=== PATIENT | female | born 1995 | race African-American/Black ===

== ENCOUNTER 2023-12-27 19:30 | Inpatient (IN) | payer BC ==
[2023-12-27 20:48] VITALS: BMI 29.4
[2023-12-27 21:27] LABS: BASO % 0.9 % (0-2.0); EOS % 0.7 % (0-4.5); HEMATOCRIT 27.5 % (32.4-45.2); HEMOGLOBIN 9.2 GM/dL (10.7-15.3); LYMPH % 23.9 % (8-40); MCH 26.3 pg (25.7-33.7); MCHC 33.7 g/dl (32.0-36.0); NEUT % 62.5 % (42.8-82.8); RBC 3.52 M/mm3 (3.60-5.2); RDW 15.1 % (11.6-15.6); WHITE BLOOD COUNT 9.2 K/mm3 (4.0-10.0)
[2023-12-27 21:43] LABS: INR 0.99 (0.83-1.09); PROTHROMBIN TIME (PATIENT) 11.5 SEC (9.7-13.0)
[2023-12-27 21:45] LABS: ACTIVATED PTT 25.5 SECONDS (25.2-36.5)
[2023-12-27 21:47] LABS: POTASSIUM 3.3 mmol/L (3.5-5.1)
[2023-12-27 21:53] LABS: ALBUMIN 2.2 g/dl (3.4-5.0); BLOOD UREA NITROGEN 10.9 mg/dL (7-18); CALCIUM 8.3 mg/dL (8.5-10.1)
[2023-12-27 21:56] LABS: BILIRUBIN,TOTAL 0.3 mg/dL (0.2-1); CREATININE 0.7 mg/dL (0.55-1.3)
[2023-12-27 22:05] LABS: MEAN PLT VOLUME 10.9 fl (7.5-11.1); PLATELET COUNT 177 10^3/uL (134-434)
[2023-12-27] MEDS: MISOPROSTOL 100 MCG TABLET PV SCH (22:15)
[2023-12-27] MEDS: DEXTROSE 5%-LACTATED RINGERS 1,000 ML IV SCH (22:30)
[2023-12-28] MEDS: IRON SUCROSE INJECTION 300 MG in SODIUM CHLORIDE 235 ML IVPB ONE (00:45)
[2023-12-28] MEDS ORDERED: morphine SULFATE 4 MG/ML VIAL ONE (05:10)
[2023-12-28] MEDS: morphine CARPU-JECT 8 MG/1 ML DISP.SYRIN IVPB ONE (05:15)
[2023-12-28] MEDS: SODIUM CHLORIDE 500 ML IV STA ×2 (10:00)
[2023-12-28] MEDS ORDERED: OXYTOCIN 30 UNITS in 0.9% NS 30 UNIT/500 ML INFUS.BAG IVPB ONE (10:08)
[2023-12-28] MEDS: OXYTOCIN 30 UNITS in 0.9% NS 30 UNIT/500 ML INFUS.BAG IVPB SCH (10:20)
[2023-12-28] MEDS: morphine SULFATE 4 MG/ML VIAL IVPB PRN (11:30)
[2023-12-28] MEDS ORDERED: OXYTOCIN 20 UNITS in 0.9% NS 20 UNIT/1,000 ML INFUS.BAG IV ONE (14:36)
[2023-12-28] MEDS: OXYTOCIN 20 UNITS in 0.9% NS 20 UNIT/1,000 ML INFUS.BAG IV SCH (15:35)
[2023-12-28] MEDS ORDERED: BENZOCAINE 28 GM HEMORRHOIDAL OINTMENT TP PRN (16:03)
[2023-12-28] MEDS ORDERED: ACETAMINOPHEN 325 MG TABLET (FP) PO PRN (16:03)
[2023-12-28 16:32] LABS: CORD BASE EXCESS -8.4 mmol/L (0-2); CORD HCO3 21.7 mmHg (20-29); CORD PCO2 64.4 mmHg (30-78); CORD pH 7.145 (7.14-7.44)
[2023-12-28 16:33] LABS: CORD BASE EXCESS -3.9 mmol/L (0-2); CORD PCO2 48.8 mmHg (30-78); CORD pH 7.292 (7.14-7.44)
[2023-12-28] MEDS: FERROUS SO4 325 MG TABLET (FP) PO SCH (18:59)
[2023-12-28] MEDS: IBUPROFEN 600 MG TABLET (FP) PO PRN (20:17)
[2023-12-28] MEDS: WITCH HAZEL 50% (TUCKS) 40 PAD/JAR PAD TP PRN (21:07)
[2023-12-28] MEDS: DOCUSATE SODIUM 100 MG CAPSULE (FP) PO SCH (21:07)
[2023-12-28 23:29] VITALS: RESP 18
[2023-12-29 08:38] LABS: BASO % 0.2 % (0-2.0); HEMATOCRIT 25.4 % (32.4-45.2); HEMOGLOBIN 8.4 GM/dL (10.7-15.3); LYMPH % 16.1 % (8-40); MCH 25.9 pg (25.7-33.7); MEAN CELL VOLUME 78.5 fl (80-96); MEAN PLT VOLUME 10.8 fl (7.5-11.1); MONO % 9.8 % (3.8-10.2); NEUT % 72.9 % (42.8-82.8); PLATELET COUNT 149 10^3/uL (134-434); RBC 3.23 M/mm3 (3.60-5.2); WHITE BLOOD COUNT 13.9 K/mm3 (4.0-10.0)
[2023-12-30 10:55] VITALS: BP 125/86; PULSE 87; TEMP 98.6
== END 2023-12-30 13:40 | disposition home or self-care (01) | DRG 806 ==
LOC: JLDR 19:30 → J3W 12-28 18:30
PROVIDERS: ADMIT Obstetrics & Gynecology Maternal & Fetal Medicine; ATTEND Obstetrics & Gynecology Maternal & Fetal Medicine
PROC: 10E0XZZ Delivery of Products of Conception, External Approach (ICD-10-PCS; principal; 2023-12-28)
PROC: 0HQ9XZZ Repair Perineum Skin, External Approach (ICD-10-PCS; 2023-12-28)
DX: O70.0 First degree perineal laceration during delivery (principal); O99.12 Other diseases of the blood and blood-forming organs and certain disorders involving the immune mechanism complicating childbirth; Z37.0 Single live birth; Z3A.39 39 weeks gestation of pregnancy
CPT/HCPCS: 36415; 36600; 80053; 82803; 85025; 85610; 85730; 86780; 86850; 86900; 86901; J1756

== ENCOUNTER 2024-07-25 21:18 | Emergency (ER) | payer BC ==
[2024-07-25 21:26] VITALS: BP 128/83; TEMP 97.9; BMI 35.4
[2024-07-25] MEDS ORDERED: ACETAMINOPHEN INJECTION 100 ML ONE ×2 (22:01→22:03)
[2024-07-25 22:37] LABS: BASO % 0.5 % (0-2.0); EOS % 1.8 % (0-4.5); HEMATOCRIT 40.3 % (32.4-45.2); HEMOGLOBIN 13.3 GM/dL (10.7-15.3); LYMPH % 30.1 % (8-40); MCH 28.1 pg (25.7-33.7); MCHC 33.1 g/dl (32.0-36.0); MEAN PLT VOLUME 9.4 fl (7.5-11.1); MONO % 9.5 % (3.8-10.2); NEUT % 58.1 % (42.8-82.8); PLATELET COUNT 350 10^3/uL (134-434); RBC 4.74 M/mm3 (3.60-5.2); RDW 14.4 % (11.6-15.6)
[2024-07-25 22:41] LABS: EPI CELLS >36 /uL (0-25.1); HYALINE CASTS 1 /uL (0-3.1); PH,URINE 7.5 (5.0-8.0); URINE APPEARANCE CLOUDY; URINE BACTERIA >9,000 /uL (0-1359); URINE BILIRUBIN NEGATIVE (NEGATIVE); URINE COLOR YELLOW; URINE GLUCOSE (UA) NEGATIVE (NEGATIVE); URINE KETONE NEGATIVE (NEGATIVE); URINE LEUK ESTERASE 1+ (NEGATIVE); URINE NITRITE POSITIVE (NEGATIVE); URINE PROTEIN NEGATIVE (NEGATIVE); URINE RBC 21 /uL (0-23.9); URINE WBC 65 /uL (0-25.8)
[2024-07-25 22:46] LABS: INR 1.13 (0.83-1.09); PROTHROMBIN TIME (PATIENT) 12.7 SEC (9.7-13.0)
[2024-07-25 22:50] LABS: ACTIVATED PTT 37.8 SECONDS (25.2-36.5)
[2024-07-25 23:01] LABS: ALBUMIN 3.6 g/dl (3.4-5.0); BLOOD UREA NITROGEN 13.1 mg/dL (7-18); CALCIUM 9.6 mg/dL (8.5-10.1); POTASSIUM 5.6 mmol/L (3.5-5.1)
[2024-07-25] MEDS: ACETAMINOPHEN 1000 MG/100 ML BAG IVPB ONE (23:03)
[2024-07-25 23:04] LABS: CREATININE 0.9 mg/dL (0.55-1.3)
[2024-07-25 23:05] LABS: BILIRUBIN,TOTAL 0.4 mg/dL (0.2-1)
[2024-07-25] MEDS: SODIUM CHLORIDE 1,000 ML IV STA (23:50)
[2024-07-26] MEDS ORDERED: CEPHALEXIN MONOHYDRATE 500 MG CAPSULE (UD) ONE (00:13)
[2024-07-26] MEDS: CEPHALEXIN MONOHYDRATE 500 MG CAPSULE (UD) PO ONE (00:17)
[2024-07-26 00:42] VITALS: PULSE 66; RESP 16
[2024-07-26 14:05] LABS: HCG,QUALITATIVE URINE Negative
== END 2024-07-26 00:42 | disposition home or self-care (01) ==
LOC: JER 21:18
PROC: 3E033NZ Introduction of Analgesics, Hypnotics, Sedatives into Peripheral Vein, Percutaneous Approach (ICD-10-PCS; principal; 2024-07-25)
PROC: 3E0337Z Introduction of Electrolytic and Water Balance Substance into Peripheral Vein, Percutaneous Approach (ICD-10-PCS; 2024-07-25)
DX: R10.12 Left upper quadrant pain (principal); R10.32 Left lower quadrant pain; R10.31 Right lower quadrant pain; N39.0 Urinary tract infection, site not specified
CPT/HCPCS: 36415; 74177-TC; 76830-TC; 80053; 81003; 83605; 84703; 85025; 85610; 85730; 87086; 87186; 99285-25; J0131; Q9967